=== PATIENT | male | born 1975 | race Caucasian/White ===

== ENCOUNTER → 2019-11-06 | Outpatient (CLI) | payer OTHER | END | disposition home or self-care (01) | LOC: LAB SHORT 13:48 → LAB 13:48 | DX: L72.3 Sebaceous cyst (principal) | CPT/HCPCS: 87070; 87205 ==

== ENCOUNTER → 2021-10-06 | Outpatient (CLI) | payer OTHER ==
[~2021-10-06] MED LIST: Prinivil10 MG PO
[2021-10-08 04:06] LABS: CHLAMYDIA TRACHOMATIS, NAA Negative (Negative)
== END ==
LOC: LAB 13:27 → LAB SHORT 13:27
PROVIDERS: Family Medicine
DX: R35.0 Frequency of micturition (principal)
CPT/HCPCS: 87491; 87591

== ENCOUNTER 2023-02-24 19:36 | Emergency (ER) | payer OTHER ==
[~2023-02-24] VITALS: Ht 172.7 cm; Wt 79.4 kg
[2023-02-24 20:22] LABS: BASOPHILS ABSOLUTE AUTO 0.04 K/mm3 (0.00-0.23); BASOPHILS PERCENT AUTO 0 % (0-2); EOSINOPHILS ABSOLUTE AUTO 0.03 K/mm3 (0.00-0.68); EOSINOPHILS PERCENT AUTO 0 % (0-6); Hematocrit 45.9 % (37.0-53.0); Hemoglobin 15.1 g/dL (13.5-17.5); IMMATURE GRAN ABSOLUTE AUTO 0.03 K/mm3 (0.00-0.10); IMMATURE GRAN PERCENT AUTO 0 % (0-1); LYMPHOCYTES ABSOLUTE AUTO 1.27 K/mm3 (0.84-5.20); LYMPHOCYTES PERCENT AUTO 11 % (21-46); MONOCYTES ABSOLUTE AUTO 0.72 K/mm3 (0.16-1.47); MONOCYTES PERCENT AUTO 6 % (4-13); Mean Corpuscular HGB 27.8 pg (26.0-34.0); Mean Corpuscular HGB Conc 32.9 g/dL (31.5-36.5); Mean Corpuscular Volume 84 fL (80-100); Mean Platelet Volume 10.9 fL (9.1-12.4); NEUTROPHILS ABSOLUTE AUTO 9.84 K/mm3 (1.96-9.15); NEUTROPHILS PERCENT AUTO 83 % (41-73); Platelet Count 359 K/mm3 (150-400); RDW Coefficient Variation 13.5 % (11.7-14.2); RDW Standard Deviation 41.6 fL (35.1-46.3); Red Blood Cell Count 5.44 M/mm3 (4.30-5.90); White Blood Cell Count 11.93 K/mm3 (4.00-11.30)
[2023-02-24 20:42] LABS: Albumin, Blood 3.8 g/dL (3.4-5.0); Albumin/Globulin Ratio 0.8 (0.8-1.8); Bilirubin, Total 0.7 mg/dL (0.1-1.0); Bun/Creatinine Ratio 11.7 (12.0-20.0); Calcium, Blood 9.9 mg/dL (8.5-10.1); Creatinine, Blood 1.54 mg/dL (0.60-1.20); Globulin, Blood 4.7 g/dL (2.2-4.0); Potassium, Blood 3.8 mmol/L (3.5-5.5); Total Protein, Blood 8.5 g/dL (6.4-8.2)
[2023-02-24 23:15] VITALS: BP 168/126
[2023-02-24] MEDS ORDERED: AMOCLA875 PO (23:17)
== END 2023-02-24 23:28 | disposition home or self-care (01) ==
LOC: ER 19:36
PROVIDERS: Student in an Organized Health Care Education/Training Program
DX: G43.909 Migraine, unspecified, not intractable, without status migrainosus (principal); I10 Essential (primary) hypertension; H66.93 Otitis media, unspecified, bilateral; F17.290 Nicotine dependence, other tobacco product, uncomplicated; Z91.030 Bee allergy status; Z79.899 Other long term (current) drug therapy
CPT/HCPCS: 36415; 70450; 80053; 85025; 93005; 93010; 96374; 96375; 96376; 99284-25; A9270; J1200; J1885; J2270; J2765

== ENCOUNTER 2023-03-21 11:36 | Emergency (ER) | payer OTHER ==
[~2023-03-21] VITALS: Ht 175.3 cm; Wt 79.4 kg
[~2023-03-21 11:36] MED LIST changes: +AMOCLA875 PO
[2023-03-21 12:20] LABS: BASOPHILS ABSOLUTE AUTO 0.07 K/mm3 (0.00-0.23); BASOPHILS PERCENT AUTO 1 % (0-2); EOSINOPHILS ABSOLUTE AUTO 0.25 K/mm3 (0.00-0.68); EOSINOPHILS PERCENT AUTO 2 % (0-6); Hematocrit 42.2 % (37.0-53.0); Hemoglobin 14.3 g/dL (13.5-17.5); IMMATURE GRAN ABSOLUTE AUTO 0.04 K/mm3 (0.00-0.10); IMMATURE GRAN PERCENT AUTO 0 % (0-1); LYMPHOCYTES ABSOLUTE AUTO 1.82 K/mm3 (0.84-5.20); LYMPHOCYTES PERCENT AUTO 17 % (21-46); MONOCYTES ABSOLUTE AUTO 0.88 K/mm3 (0.16-1.47); MONOCYTES PERCENT AUTO 8 % (4-13); Mean Corpuscular HGB 27.8 pg (26.0-34.0); Mean Corpuscular HGB Conc 33.9 g/dL (31.5-36.5); Mean Corpuscular Volume 82 fL (80-100); NEUTROPHILS ABSOLUTE AUTO 7.37 K/mm3 (1.96-9.15); NEUTROPHILS PERCENT AUTO 71 % (41-73); Platelet Count 341 K/mm3 (150-400); RDW Coefficient Variation 13.1 % (11.7-14.2); RDW Standard Deviation 39.2 fL (35.1-46.3); Red Blood Cell Count 5.14 M/mm3 (4.30-5.90); White Blood Cell Count 10.43 K/mm3 (4.00-11.30)
[2023-03-21 12:39] LABS: Albumin, Blood 3.3 g/dL (3.4-5.0); Albumin/Globulin Ratio 0.8 (0.8-1.8); Bilirubin, Total 0.5 mg/dL (0.1-1.0); Bun/Creatinine Ratio 12.1 (12.0-20.0); Calcium, Blood 9.2 mg/dL (8.5-10.1); Creatinine, Blood 1.49 mg/dL (0.60-1.20); Globulin, Blood 4.2 g/dL (2.2-4.0); Potassium, Blood 3.1 mmol/L (3.5-5.5); Total Protein, Blood 7.5 g/dL (6.4-8.2)
[2023-03-21 13:30] VITALS: BP 202/157
[2023-03-21] MEDS ORDERED: PSEU120ER PO (14:14)
[2023-03-21] MEDS ORDERED: AMOCLA875 PO (14:14)
[2023-03-21] MEDS ORDERED: Flonase 0.05% N16 GM (14:14)
[2023-03-21] MEDS ORDERED: METO10 PO (14:14)
== END 2023-03-21 15:25 | disposition home or self-care (01) ==
LOC: ER 11:36
PROVIDERS: Student in an Organized Health Care Education/Training Program
DX: G43.909 Migraine, unspecified, not intractable, without status migrainosus (principal); H66.93 Otitis media, unspecified, bilateral; H60.92 Unspecified otitis externa, left ear; R09.81 Nasal congestion; Z91.030 Bee allergy status; Z79.899 Other long term (current) drug therapy; I10 Essential (primary) hypertension; F17.290 Nicotine dependence, other tobacco product, uncomplicated
CPT/HCPCS: 36415; 71046; 80053; 84484; 85025; 93005; 93010; 96374; 96375; 99284-25; A9270; J1885; J2765; J3475; J7030

== ENCOUNTER 2023-03-31 18:46 | Emergency (ER) | payer OTHER ==
[~2023-03-31] VITALS: Ht 175.3 cm; Wt 81.7 kg
[~2023-03-31 18:46] MED LIST changes: +Flonase 0.05% N16 GM; +METO10 PO; +PSEU120ER PO
[2023-03-31 18:47] VITALS: BP 205/146
[2023-03-31 19:20] LABS: BASOPHILS ABSOLUTE AUTO 0.05 K/mm3 (0.00-0.23); BASOPHILS PERCENT AUTO 0 % (0-2); EOSINOPHILS ABSOLUTE AUTO 0.01 K/mm3 (0.00-0.68); EOSINOPHILS PERCENT AUTO 0 % (0-6); Hematocrit 40.1 % (37.0-53.0); Hemoglobin 13.5 g/dL (13.5-17.5); IMMATURE GRAN ABSOLUTE AUTO 0.05 K/mm3 (0.00-0.10); IMMATURE GRAN PERCENT AUTO 0 % (0-1); LYMPHOCYTES ABSOLUTE AUTO 1.12 K/mm3 (0.84-5.20); LYMPHOCYTES PERCENT AUTO 7 % (21-46); MONOCYTES PERCENT AUTO 4 % (4-13); Mean Corpuscular HGB 28.2 pg (26.0-34.0); Mean Corpuscular HGB Conc 33.7 g/dL (31.5-36.5); Mean Corpuscular Volume 84 fL (80-100); Mean Platelet Volume 11.1 fL (9.1-12.4); NEUTROPHILS ABSOLUTE AUTO 13.84 K/mm3 (1.96-9.15); NEUTROPHILS PERCENT AUTO 88 % (41-73); Platelet Count 350 K/mm3 (150-400); RDW Coefficient Variation 13.5 % (11.7-14.2); RDW Standard Deviation 41.9 fL (35.1-46.3); Red Blood Cell Count 4.78 M/mm3 (4.30-5.90); White Blood Cell Count 15.77 K/mm3 (4.00-11.30)
[2023-03-31 19:39] LABS: Albumin, Blood 3.6 g/dL (3.4-5.0); Albumin/Globulin Ratio 0.8 (0.8-1.8); Bilirubin, Total 0.6 mg/dL (0.1-1.0); Bun/Creatinine Ratio 14.2 (12.0-20.0); Calcium, Blood 9.2 mg/dL (8.5-10.1); Creatinine, Blood 1.55 mg/dL (0.60-1.20); Globulin, Blood 4.3 g/dL (2.2-4.0); Potassium, Blood 3.1 mmol/L (3.5-5.5); Total Protein, Blood 7.9 g/dL (6.4-8.2)
== END 2023-03-31 20:13 | disposition left against medical advice (07) ==
LOC: ER 18:46
PROVIDERS: Student in an Organized Health Care Education/Training Program
DX: R51.9 Headache, unspecified (principal); Z53.21 Procedure and treatment not carried out due to patient leaving prior to being seen by health care provider
CPT/HCPCS: 80053; 83690; 85025; 93005; 93010

== ENCOUNTER 2023-04-17 13:17 | Inpatient (IN) | payer OTHER ==
[~2023-04-17] VITALS: Ht 175.3 cm; Wt 79.1 kg
[2023-04-17 13:51] LABS: BASOPHILS ABSOLUTE AUTO 0.07 K/mm3 (0.00-0.23); BASOPHILS PERCENT AUTO 0 % (0-2); EOSINOPHILS ABSOLUTE AUTO 0.08 K/mm3 (0.00-0.68); EOSINOPHILS PERCENT AUTO 1 % (0-6); Hematocrit 40.7 % (37.0-53.0); Hemoglobin 14.3 g/dL (13.5-17.5); IMMATURE GRAN ABSOLUTE AUTO 0.07 K/mm3 (0.00-0.10); IMMATURE GRAN PERCENT AUTO 0 % (0-1); LYMPHOCYTES ABSOLUTE AUTO 1.72 K/mm3 (0.84-5.20); LYMPHOCYTES PERCENT AUTO 10 % (21-46); MONOCYTES ABSOLUTE AUTO 1.17 K/mm3 (0.16-1.47); MONOCYTES PERCENT AUTO 7 % (4-13); Mean Corpuscular HGB 28.7 pg (26.0-34.0); Mean Corpuscular HGB Conc 35.1 g/dL (31.5-36.5); Mean Corpuscular Volume 82 fL (80-100); Mean Platelet Volume 11.8 fL (9.1-12.4); NEUTROPHILS ABSOLUTE AUTO 14.01 K/mm3 (1.96-9.15); NEUTROPHILS PERCENT AUTO 82 % (41-73); Platelet Count 301 K/mm3 (150-400); RDW Coefficient Variation 13.4 % (11.7-14.2); RDW Standard Deviation 39.6 fL (35.1-46.3); Red Blood Cell Count 4.99 M/mm3 (4.30-5.90); White Blood Cell Count 17.12 K/mm3 (4.00-11.30)
[2023-04-17 14:09] LABS: Albumin, Blood 3.5 g/dL (3.4-5.0); Albumin/Globulin Ratio 0.8 (0.8-1.8); Bilirubin, Total 0.7 mg/dL (0.1-1.0); Bun/Creatinine Ratio 10.1 (12.0-20.0); Calcium, Blood 9.6 mg/dL (8.5-10.1); Creatinine, Blood 1.78 mg/dL (0.60-1.20); Globulin, Blood 4.3 g/dL (2.2-4.0); Potassium, Blood 3.5 mmol/L (3.5-5.5); Total Protein, Blood 7.8 g/dL (6.4-8.2)
[2023-04-17 17:45] LABS: Source, Urine Clean Catch
[2023-04-17 17:59] LABS: Appearance, Urine Cloudy (Clear); Bilirubin, Urine Neg (Neg); Blood, Urine 5+ (Neg); Color, Urine Amber (P-Yellow); Glucose Qualitative, Urine Neg (Neg); Ketones, Urine Neg (Neg); Leukocyte Esterase, Urine 1+ (Neg); Nitrite, Urine Neg (Neg); Protein, Urine 3+ (Neg); Specific Gravity, Urine 1.015 (1.003-1.022); Urobilinogen, Urine NORM (Normal)
[2023-04-17 18:08] LABS: Red Blood Cells, Urine TNTC /hpf (0-2); Squamous Epithelial Cells Not Seen /hpf (Few)
[2023-04-17 18:10] LABS: Bacteria Few /hpf
[2023-04-18] VITALS (9 sets, daily range): BP systolic 105–207; BP diastolic 11–137
--- NOTE | 2023-04-18 00:45 | NUR ---
Contacted ER nurse regarding her tellin gme in report that patient did not receive the antibiotic even though it was charted as given. Confirmed with her that it was not given.
[2023-04-18 04:10] LABS: BASOPHILS ABSOLUTE AUTO 0.07 K/mm3 (0.00-0.23); BASOPHILS PERCENT AUTO 0 % (0-2); EOSINOPHILS ABSOLUTE AUTO 0.18 K/mm3 (0.00-0.68); EOSINOPHILS PERCENT AUTO 1 % (0-6); Hematocrit 34.8 % (37.0-53.0); Hemoglobin 11.8 g/dL (13.5-17.5); IMMATURE GRAN ABSOLUTE AUTO 0.04 K/mm3 (0.00-0.10); IMMATURE GRAN PERCENT AUTO 0 % (0-1); LYMPHOCYTES ABSOLUTE AUTO 2.41 K/mm3 (0.84-5.20); LYMPHOCYTES PERCENT AUTO 13 % (21-46); MONOCYTES ABSOLUTE AUTO 1.58 K/mm3 (0.16-1.47); MONOCYTES PERCENT AUTO 9 % (4-13); Mean Corpuscular HGB 28.6 pg (26.0-34.0); Mean Corpuscular HGB Conc 33.9 g/dL (31.5-36.5); Mean Corpuscular Volume 84 fL (80-100); Mean Platelet Volume 11.6 fL (9.1-12.4); NEUTROPHILS ABSOLUTE AUTO 14.26 K/mm3 (1.96-9.15); NEUTROPHILS PERCENT AUTO 77 % (41-73); Platelet Count 242 K/mm3 (150-400); RDW Coefficient Variation 13.5 % (11.7-14.2); RDW Standard Deviation 41.6 fL (35.1-46.3); Red Blood Cell Count 4.13 M/mm3 (4.30-5.90); White Blood Cell Count 18.54 K/mm3 (4.00-11.30)
[2023-04-18 04:32] LABS: Albumin, Blood 2.8 g/dL (3.4-5.0); Albumin/Globulin Ratio 0.8 (0.8-1.8); Bilirubin, Total 0.3 mg/dL (0.1-1.0); Bun/Creatinine Ratio 10.2 (12.0-20.0); Calcium, Blood 8.3 mg/dL (8.5-10.1); Creatinine, Blood 2.15 mg/dL (0.60-1.20); Globulin, Blood 3.5 g/dL (2.2-4.0); Potassium, Blood 3.4 mmol/L (3.5-5.5); Total Protein, Blood 6.3 g/dL (6.4-8.2)
--- NOTE | 2023-04-18 05:54 | NUR ---
Assumed care of pt at 2345 as ER admit. A/Ox4, cooperative with care. Independent in room. C/o abdominal pain, relieved with PRN's. Able to have small, hard BM this shift. NSR on tele in the 80's. Denies CP/pressure. Both SBP and DBP elevated, order to keep SBP above 200. Abdomen slightly distended, hypoactive bowel tones, and tender to touch. [place] urine output, patient denies frequency/urgency. Large bruise to R bicep area of unknown cause. Will report to shauna RN.
--- NOTE | 2023-04-18 18:06 | NUR ---
SHIFT SUMMARY ALERT, ORIENTED, OCC WITHDRAWN AND IRRITABLE, MOSTLY COOPERATIVE. HIGH BP, MEDS ADJUSTED BY DR ROMANO, GOAL IS SBP LESS THAN 170. CONTINU EBOWEL CARE, PATIENT REPORTS A COUPLE SMALL HARD STOOLS, PASSING SOME GAS. ABD IS FIRM AND TENDER. FREQUENT NAUSEA WITH DRY HEAVES. MEDICATED PER EMAR. INDEPENDENT IN ROOM. TOLERATING MECH SOFT DIET. SALINE LOCKED. SEVERAL FAMILY MEMBERS VISITED DURING SHIFT.
--- NOTE | 2023-04-18 23:52 | NUR ---
BM PT STILL C/O SEVERE ABD PAIN/TENDERNESS AND LACK OF SIGNIFICANT BM. CALLEDRESIDENT PALOMINO REGARDING THIS. PROVIDER AWARE OF PT. ORDERS FOR FLEET ENEMA GIVEN, ADMINISTERED. PT UNABLE AT THIS TIME TO HAVE BM EXCEPT FOR SMALL FLAKES WITHIN THE CLEAR ENEMA SOLUTION. PT UP AND DOWN TO BATHROOM OFTEN WITHOUT SUCCESSFUL BM AT THIS TIME. CONTINUING TO MONITOR FOR CHANGES IN THIS.
[2023-04-19] VITALS (9 sets, daily range): BP systolic 159–201; BP diastolic 104–137
[2023-04-19 04:24] LABS: BASOPHILS ABSOLUTE AUTO 0.07 K/mm3 (0.00-0.23); BASOPHILS PERCENT AUTO 0 % (0-2); EOSINOPHILS ABSOLUTE AUTO 0.28 K/mm3 (0.00-0.68); EOSINOPHILS PERCENT AUTO 2 % (0-6); Hematocrit 36.3 % (37.0-53.0); Hemoglobin 12.3 g/dL (13.5-17.5); IMMATURE GRAN ABSOLUTE AUTO 0.08 K/mm3 (0.00-0.10); IMMATURE GRAN PERCENT AUTO 1 % (0-1); LYMPHOCYTES ABSOLUTE AUTO 2.13 K/mm3 (0.84-5.20); LYMPHOCYTES PERCENT AUTO 13 % (21-46); MONOCYTES ABSOLUTE AUTO 1.31 K/mm3 (0.16-1.47); MONOCYTES PERCENT AUTO 8 % (4-13); Mean Corpuscular HGB 28.2 pg (26.0-34.0); Mean Corpuscular HGB Conc 33.9 g/dL (31.5-36.5); Mean Corpuscular Volume 83 fL (80-100); NEUTROPHILS ABSOLUTE AUTO 12.39 K/mm3 (1.96-9.15); NEUTROPHILS PERCENT AUTO 76 % (41-73); Platelet Count 260 K/mm3 (150-400); RDW Coefficient Variation 13.6 % (11.7-14.2); RDW Standard Deviation 41.5 fL (35.1-46.3); Red Blood Cell Count 4.36 M/mm3 (4.30-5.90); White Blood Cell Count 16.26 K/mm3 (4.00-11.30)
[2023-04-19 04:38] LABS: Bun/Creatinine Ratio 11.8 (12.0-20.0); Creatinine, Blood 1.95 mg/dL (0.60-1.20); Potassium, Blood 3.6 mmol/L (3.5-5.5)
--- NOTE | 2023-04-19 04:55 | NUR ---
SHIFT SUMMARY PT AXO. IN SR. HTN REQUIRING PRN LABETOLOL TREATMENTS BUT BP STILL REMAINS HTN DESPITE BEING UNDER 170SBP PARAMETER. POST CALL TO PROVIDER AND ADMINISTRATION OF FLEET ENEMA, PT HAS BEEN UP TO TOILET MULTIPLE TIMES THIS SHIFT WITH ONLY SCANT MUCOUSY OUTPUT. PT WAS COMPLAINING OF SEVERE PAIN PRIOR TO ENEMA ADMINISTRATION AND DURING BUT THIS HAS SINCE APPEARED TO HAVE LESSENED, PT HAS BEEN RESTING AND SNORING IN ROOM SINCE AROUND 1300. PT HAS BATHED MULTIPLE TIMES THIS SHIFT THIS IS A COPING AND PAIN MECHANISM FOR PT. PT TOLERATING PO INTAKE WITHOUT NAUSEA THIS SHIFT. PT INDEPENDENT IN ROOM. CALL LIGHT WITHIN REACH.
--- NOTE | 2023-04-19 14:31 | NUR ---
TRANSFER NOTE ALERT, ORIENTED, COOPERATIVE. REPORTS INTERMITTENT SEVERE ABD PAIN. ABD SOFT, TENDER, ACTIVE BT, PASSING GAS, SMALL HARD STOOLS. TOLERATING MEALS AND PO LIQUIDS. OCCASIONAL NAUSEA AND VOMITING. HIGH SBP, VS OTHERWISE STABLE. MEDICATED FOR BP PER EMAR. INDEPENDENT IN ROOM. SR/ST ON TELE. PLAN TO CONTINUE BOWEL CARE UNTIL ADEQUATE BOWEL MOVEMENT. REPORT GIVEN TO MARGARITA PIÑA RN ON SURGICAL FLOOR. PATIENT LEFT UNIT FOR ROOM 211 AT 1410 VIA WHEELCHAIR.
--- NOTE | 2023-04-19 15:25 | NUR ---
ASSUMED CARE OF PT, TRANSFERRED FROM PCU, DENIES ANY PAIN AT THIS TIME, STATES HE HAS NOT HAD A BM TODAY DESPITE BOWEL CARE REGIMEN, DR. GALVAN NOTIFIED, LACTULOSE NOTED ORDERED, INDEPENDENT IN ROOM, STATES HE TAKES FREQUENT SHOWERS TO HELP RELIEVE DISCOMFORT FROM FEELING CONSTIPATED, ORIENTED TO ROOM, CALL LIGHT WITHIN REACH, CONT. TO MONITOR FOR ANY CHANGES.
--- NOTE | 2023-04-19 17:01 | NUR ---
SUMMARY TRANSFERRED FROM PCU, CONT. PRN HYDRALZAINE GIVEN THIS AFTERNOON FOR SPB >170, PT TAKING FREQUENT SHOWERS, DENIES ANY NAUSEA, NO BM TODAY, NO OTHER CHANGES THIS SHIFT.
[2023-04-20] VITALS (11 sets, daily range): BP systolic 151–192; BP diastolic 36–137
[2023-04-20 05:56] LABS: BASOPHILS ABSOLUTE AUTO 0.04 K/mm3 (0.00-0.23); BASOPHILS PERCENT AUTO 0 % (0-2); EOSINOPHILS PERCENT AUTO 2 % (0-6); Hematocrit 35.3 % (37.0-53.0); Hemoglobin 11.8 g/dL (13.5-17.5); IMMATURE GRAN ABSOLUTE AUTO 0.05 K/mm3 (0.00-0.10); IMMATURE GRAN PERCENT AUTO 0 % (0-1); LYMPHOCYTES ABSOLUTE AUTO 1.69 K/mm3 (0.84-5.20); LYMPHOCYTES PERCENT AUTO 14 % (21-46); MONOCYTES ABSOLUTE AUTO 0.97 K/mm3 (0.16-1.47); MONOCYTES PERCENT AUTO 8 % (4-13); Mean Corpuscular HGB 28.9 pg (26.0-34.0); Mean Corpuscular HGB Conc 33.4 g/dL (31.5-36.5); Mean Corpuscular Volume 86 fL (80-100); Mean Platelet Volume 11.6 fL (9.1-12.4); NEUTROPHILS ABSOLUTE AUTO 9.48 K/mm3 (1.96-9.15); NEUTROPHILS PERCENT AUTO 76 % (41-73); Platelet Count 268 K/mm3 (150-400); RDW Coefficient Variation 13.4 % (11.7-14.2); RDW Standard Deviation 41.8 fL (35.1-46.3); Red Blood Cell Count 4.09 M/mm3 (4.30-5.90); White Blood Cell Count 12.53 K/mm3 (4.00-11.30)
[2023-04-20 06:42] LABS: Anion Gap 4 mmol/L (6-16); Blood Urea Nitrogen 26 mg/dL (8-24); Bun/Creatinine Ratio 12.5 (12.0-20.0); CO2, Blood 32 mmol/L (21-32); Calcium, Blood 8.8 mg/dL (8.5-10.1); Chloride, Blood 100 mmol/L (98-108); Creatinine, Blood 2.08 mg/dL (0.60-1.20); Glomerular Filtration Rate 39 (60-); Glucose, Blood 105 mg/dL (70-99); Phosphorus, Blood 3.7 mg/dL (2.5-4.9); Potassium, Blood 3.8 mmol/L (3.5-5.5); Sodium, Blood 136 mmol/L (136-145)
--- NOTE | 2023-04-20 07:31 | NUR ---
SHIFT SUMMARY AOX4. BP ELEVATED T/O NIGHT, 197/128 @BEGINNING OF SHIFT-GAVE HS LOPRESSOR, NORVASC & 10MG IV LABETOLOL PUSH, BP DECREASED TO 186/120 & PT SLEPT SOUNDLY T/O NIGHT. THIS AM BP ELEVATED AGAIN @192/137, GAVE LABETOLOL PUSH & BP DECREASED TO 167/116. REST OF VITALS STABLE. TELE NSR HR 90'S. REPORTS 8/10 LUQ ABD PAIN, DENIED NEED FOR PAIN MEDS. HAD 1 LRG LIQUID BROWN BM & ABD PAIN DECREASED TO 2/10 THIS AM. HYPERACTIVE BT. DENIES N/V. TOLERATING REG [facility] SOFT DIET. CALL LIGHT IN REACH & PT IND.
--- NOTE | 2023-04-20 07:44 | NUR ---
PT BP 188/135. PT MEDICATED WITH 10MG LABATELOL AT 0745. PRIOR TO ADMINISTRATION TELE CALLED, MD HR SR 88 W/PVC'S. WILL RE-CHECK BP IN APROX 15MIN.
[2023-04-20 17:10] LABS: U Amphetamine Screen Not Detected; U Barbituate Screen Not Detected; U Benzodiazapine Screen Not Detected; U Buprenorphine Screen Not Detected; U Cannabinoids Screen DETECTED; U Cocaine Screen Not Detected; U Methadone Screen Not Detected; U Methamphetamine Screen Not Detected; U Opiates Screen Not Detected; U Oxycodone Screen Not Detected; U Phencyclidine Screen Not Detected; U Propoxyphene Screen Not Detected
--- NOTE | 2023-04-20 18:16 | NUR ---
SHIFT SUMMARY PT HAS CONTINUED TO HAVE HTN T/O SHIFT, MANAGED WITH IVP MEDICATIONS AND WILL ADD NEW PO MEDICATION TO START TONIGHT. PT HAS BEEN UP TO TAKE MULTIPLE SHOWERS OR TO "SPRAY HOT WATER" ON ABD FOR PAIN. AMBULATING IN HALLWAY INDEPENDENTLY. TELE NSR W/PVCS W/RATE 84-88 T/O SHIFT.
[2023-04-21 04:32] VITALS: BP 146/98
[2023-04-21 05:03] LABS: BASOPHILS ABSOLUTE AUTO 0.07 K/mm3 (0.00-0.23); BASOPHILS PERCENT AUTO 1 % (0-2); EOSINOPHILS ABSOLUTE AUTO 0.35 K/mm3 (0.00-0.68); EOSINOPHILS PERCENT AUTO 3 % (0-6); Hematocrit 34.7 % (37.0-53.0); Hemoglobin 11.2 g/dL (13.5-17.5); IMMATURE GRAN ABSOLUTE AUTO 0.05 K/mm3 (0.00-0.10); IMMATURE GRAN PERCENT AUTO 0 % (0-1); LYMPHOCYTES ABSOLUTE AUTO 1.71 K/mm3 (0.84-5.20); LYMPHOCYTES PERCENT AUTO 14 % (21-46); MONOCYTES ABSOLUTE AUTO 0.91 K/mm3 (0.16-1.47); MONOCYTES PERCENT AUTO 7 % (4-13); Mean Corpuscular HGB 27.6 pg (26.0-34.0); Mean Corpuscular HGB Conc 32.3 g/dL (31.5-36.5); Mean Corpuscular Volume 86 fL (80-100); Mean Platelet Volume 11.9 fL (9.1-12.4); NEUTROPHILS ABSOLUTE AUTO 9.51 K/mm3 (1.96-9.15); NEUTROPHILS PERCENT AUTO 75 % (41-73); Platelet Count 297 K/mm3 (150-400); RDW Coefficient Variation 13.5 % (11.7-14.2); RDW Standard Deviation 42.4 fL (35.1-46.3); Red Blood Cell Count 4.06 M/mm3 (4.30-5.90)
[2023-04-21 05:42] LABS: Bun/Creatinine Ratio 13.5 (12.0-20.0); Calcium, Blood 8.9 mg/dL (8.5-10.1); Creatinine, Blood 1.85 mg/dL (0.60-1.20); Potassium, Blood 4.1 mmol/L (3.5-5.5)
--- NOTE | 2023-04-21 07:42 | NUR ---
SHIFT SUMMARY PT HAS BEEN ABLE TO REST COMFORTABLY AFTER GETTING TRAMADOL FOR PAIN, BLOOD PRESSURE DECREASED AFTER IV LABETOLOL & HYDRALIZINE AND AN INCREASED DOSE OF PO METOPROLOL, NO OTHER ACUTE CHANGES NOTED, REPORT GIVEN TO DAY RN, CALL LIGHT IN REACH
[2023-04-21 07:53] VITALS: BP 156/109
[2023-04-21 07:55] VITALS: BP 148/110
[2023-04-21] MEDS ORDERED: CATAPRES0.1 MG PO (10:33)
[2023-04-21] MEDS ORDERED: AMLO5 PO (10:33)
[2023-04-21] MEDS ORDERED: DOCU100 PO (10:34)
[2023-04-21] MEDS ORDERED: METO50 PO (10:34)
[2023-04-21] MEDS ORDERED: GABA100 PO (10:34)
[2023-04-21] MEDS ORDERED: Nicoderm Cq1 EACH TOP (10:34)
[2023-04-21] MEDS ORDERED: TRAM50 PO (10:35)
[2023-04-21] MEDS ORDERED: MIRALAX17 GM PO (10:35)
[2023-04-21] MEDS ORDERED: SENNA LAXATIVE8.6 MG PO (10:35)
--- NOTE | 2023-04-21 11:14 | NUR ---
DISCHARGE PT LEFT AT 1100. IV REMOVED PRIOR TO DISCHARGE. PRESCRIPTIONS FAXED TO [facility] PER PT REQUEST. HE PLANS TO PICK THEM UP SOON POSSIBLE. F/U APPOINTMENTS PATIENT REPORTS ALREADY SCHEDULED. HE REPORTS FEELING MUCH BETTER TODAY WITH BLOOD PRESSURE DOWN TO THE 140'S. ALL BELONGINGS SENT WITH SISTER PRIOR TO DISCHARGE.
== END 2023-04-21 11:17 | disposition home or self-care (01) | DRG 392 ==
LOC: ER 13:17 → PCU 13:18 → UNDODEPER 23:32 → PCU 23:49 → SURS 04-19 14:25
PROVIDERS: Family Medicine; Internal Medicine; Physician Assistant; ADMIT Internal Medicine
DX: K59.00 Constipation, unspecified (principal); R65.10 Systemic inflammatory response syndrome (SIRS) of non-infectious origin without acute organ dysfunction; E87.1 Hypo-osmolality and hyponatremia; K86.3 Pseudocyst of pancreas; I24.8 Other forms of acute ischemic heart disease; N17.9 Acute kidney failure, unspecified; Z91.148 Patient's other noncompliance with medication regimen for other reason; I16.0 Hypertensive urgency; N18.30 Chronic kidney disease, stage 3 unspecified; E87.6 Hypokalemia; D63.1 Anemia in chronic kidney disease; Z87.891 Personal history of nicotine dependence; Z91.038 Other insect allergy status; Z91.030 Bee allergy status; Z79.2 Long term (current) use of antibiotics; Z79.899 Other long term (current) drug therapy
CPT/HCPCS: 36415; 71046; 74018; 74177; 80048; 80053; 80069; 81001; 83605; 83690; 84484; 85025; 87040; 87086; 93005; 93010; 93306; 96361; 96372; 96374-59; 96375; 96376; 99285-25; A9270; G0378; J0360; J0696; J1170; J1200; J1650; J1940; J2765; J3010; J7030; J7050; Q9967

== ENCOUNTER → 2023-10-04 | Outpatient (CLI) | payer OTHER ==
[~2023-10-04] MED LIST changes: +AMLO5 PO; +CATAPRES0.1 MG PO; +DOCU100 PO; +GABA100 PO; +METO50 PO; +MIRALAX17 GM PO; +Nicoderm Cq1 EACH TOP; +SENNA LAXATIVE8.6 MG PO; +TRAM50 PO
[2023-10-04 18:25] LABS: BASOPHILS ABSOLUTE AUTO 0.06 K/mm3 (0.00-0.23); BASOPHILS PERCENT AUTO 1 % (0-2); EOSINOPHILS ABSOLUTE AUTO 0.17 K/mm3 (0.00-0.68); EOSINOPHILS PERCENT AUTO 1 % (0-6); Hematocrit 39.9 % (37.0-53.0); Hemoglobin 12.8 g/dL (13.5-17.5); IMMATURE GRAN ABSOLUTE AUTO 0.04 K/mm3 (0.00-0.10); IMMATURE GRAN PERCENT AUTO 0 % (0-1); LYMPHOCYTES ABSOLUTE AUTO 2.46 K/mm3 (0.84-5.20); LYMPHOCYTES PERCENT AUTO 20 % (21-46); MONOCYTES ABSOLUTE AUTO 0.79 K/mm3 (0.16-1.47); MONOCYTES PERCENT AUTO 6 % (4-13); Mean Corpuscular HGB 27.7 pg (26.0-34.0); Mean Corpuscular HGB Conc 32.1 g/dL (31.5-36.5); Mean Corpuscular Volume 86 fL (80-100); Mean Platelet Volume 10.8 fL (9.1-12.4); NEUTROPHILS ABSOLUTE AUTO 9.06 K/mm3 (1.96-9.15); NEUTROPHILS PERCENT AUTO 72 % (41-73); Platelet Count 455 K/mm3 (150-400); RDW Standard Deviation 40.8 fL (35.1-46.3); Red Blood Cell Count 4.62 M/mm3 (4.30-5.90); White Blood Cell Count 12.58 K/mm3 (4.00-11.30)
[2023-10-04 18:52] LABS: Albumin, Blood 3.4 g/dL (3.4-5.0); Albumin/Globulin Ratio 0.8 (0.8-1.8); Bilirubin, Total 0.2 mg/dL (0.1-1.0); Bun/Creatinine Ratio 12.5 (12.0-20.0); Creatinine, Blood 1.92 mg/dL (0.60-1.20); Globulin, Blood 4.4 g/dL (2.2-4.0); Potassium, Blood 3.7 mmol/L (3.5-5.5); Thyroid Stimulating Hormone 1.49 uIU/mL (0.360-4.800); Total Protein, Blood 7.8 g/dL (6.4-8.2)
== END ==
LOC: LAB SHORT 17:30 → LAB 17:30
PROVIDERS: Nurse Practitioner Family
DX: R06.02 Shortness of breath (principal); R53.81 Other malaise
CPT/HCPCS: 80053; 83880; 84443; 85025; 85379

== ENCOUNTER 2024-07-04 03:39 | Observation (INO) | payer OTHER ==
[~2024-07-04] VITALS: Ht 175.3 cm; Wt 87.8 kg
[~2024-07-04 03:39] MED LIST changes: +CEPH500 PO; +Carvedilol12.5 MG PO; +DOCUZEN 8.6-501 EACH PO; +FAMO20 PO; +LISI20 PO; +LOSA25 PO; +METR500 PO; +NICODERM CQ1 EA11 TOP; +Percocet 5-3251 EACH PO; +TAMS.4ER PO; +VISBIOME 112.51 EACH PO
[2024-07-04 04:09] LABS: BASOPHILS ABSOLUTE AUTO 0.06 K/mm3 (0.00-0.23); BASOPHILS PERCENT AUTO 1 % (0-2); EOSINOPHILS ABSOLUTE AUTO 0.26 K/mm3 (0.00-0.68); EOSINOPHILS PERCENT AUTO 3 % (0-6); Hematocrit 41.3 % (37.0-53.0); Hemoglobin 13.4 g/dL (13.5-17.5); IMMATURE GRAN ABSOLUTE AUTO 0.02 K/mm3 (0.00-0.10); IMMATURE GRAN PERCENT AUTO 0 % (0-1); LYMPHOCYTES ABSOLUTE AUTO 1.86 K/mm3 (0.84-5.20); LYMPHOCYTES PERCENT AUTO 18 % (21-46); MONOCYTES ABSOLUTE AUTO 0.85 K/mm3 (0.16-1.47); MONOCYTES PERCENT AUTO 8 % (4-13); Mean Corpuscular HGB 27.7 pg (26.0-34.0); Mean Corpuscular HGB Conc 32.4 g/dL (31.5-36.5); Mean Corpuscular Volume 85 fL (80-100); Mean Platelet Volume 10.7 fL (9.1-12.4); NEUTROPHILS ABSOLUTE AUTO 7.17 K/mm3 (1.96-9.15); NEUTROPHILS PERCENT AUTO 70 % (41-73); Platelet Count 294 K/mm3 (150-400); RDW Coefficient Variation 13.6 % (11.7-14.2); RDW Standard Deviation 42.6 fL (35.1-46.3); Red Blood Cell Count 4.84 M/mm3 (4.30-5.90); White Blood Cell Count 10.22 K/mm3 (4.00-11.30)
[2024-07-04 04:28] LABS: Albumin, Blood 3.1 g/dL (3.4-5.0); Albumin/Globulin Ratio 0.8 (0.8-1.8); Bilirubin, Total 0.2 mg/dL (0.1-1.0); Bun/Creatinine Ratio 15.3 (12.0-20.0); Creatinine, Blood 1.57 mg/dL (0.60-1.20); Globulin, Blood 3.9 g/dL (2.2-4.0); Potassium, Blood 4.1 mmol/L (3.5-5.5)
[2024-07-04] MEDS ORDERED: Ketorolac Tromethamine 30mg Vial IV ONE (05:00)
[2024-07-04] MEDS ORDERED: HYDROmorphone HCl/Pf 1MG SYR IV ONE (05:05)
[2024-07-04] MEDS ORDERED: NS 1,000 ML IV SCH (05:05)
[2024-07-04] MEDS ORDERED: Ondansetron HCl 2 MG / ML 2ML Vial IV ONE (05:05)
[2024-07-04 05:24] LABS: Source, Urine Clean Catch
[2024-07-04 05:30] LABS: Bilirubin, Urine Neg (Neg); Blood, Urine 1+ (Neg); Glucose Qualitative, Urine Neg (Neg); Ketones, Urine Neg (Neg); Leukocyte Esterase, Urine Neg (Neg); Nitrite, Urine Neg (Neg); Protein, Urine Neg (Neg); Specific Gravity, Urine 1.015 (1.003-1.022); Urobilinogen, Urine NORM (Normal); pH, Urine 6.5 (5.0-8.0)
[2024-07-04 05:43] LABS: Appearance, Urine Clear (Clear); Color, Urine Pale Yellow (P-Yellow)
[2024-07-04 05:44] LABS: Bacteria Few /hpf; Red Blood Cells, Urine 0-2 /hpf (0-2); Squamous Epithelial Cells Few /hpf (Few); White Blood Cells, Urine 0-2 /hpf (0-5)
[2024-07-04] MEDS ORDERED: Ondansetron HCl 2 MG / ML 2ML Vial IV PRN (06:50)
[2024-07-04] MEDS ORDERED: FentaNYL Citrate 50 MCG/ML 2 ML Injection IV PRN (06:50)
[2024-07-04] MEDS ORDERED: Lactated Ringer's 1,000 ML IV SCH (06:50)
[2024-07-04] MEDS ORDERED: Lactated Ringer's 1,000 ML IV ONE (07:03)
--- NOTE | 2024-07-04 08:20 | NUR ---
Telephone report received from ED at this time. Pt to arrive to 212 shortly.
[2024-07-04 08:35] VITALS: BP 156/111
[2024-07-04] MEDS ORDERED: Carvedilol12.5 MG PO (08:55)
[2024-07-04] MEDS ORDERED: AMLO10 PO (08:56)
[2024-07-04] MEDS ORDERED: PEPTO-BISMOL T262 M2 PO ×2 (08:58→08:59)
--- NOTE | 2024-07-04 09:22 | NUR ---
Pt arrived to 212 by wheelchair, with his head covered in a blanket. States that he is having a headache and has sensitivity to light. He is irritable, demanding to have a shower before anything else, although he agreed to complete the admission process and have an IV started before the shower. He has made several remarks to staff which were demeaning and sarcastic, criticizing the intelligence and compentency of staff. States he is not fond of anyone at the hosptial. His girlfriend frequently tells him to please stop.
[2024-07-04] MEDS ORDERED: HYDROcodone 7.5-APAP 325 TAB PO PRN (10:40)
--- NOTE | 2024-07-04 11:09 | NUR ---
Pt had a visit from his mother who was pushing pt's father in a wheelchair. Immediately as they entered the pt sat up in bed, yelling at them, which susy multiple staff members from around the unit. The pt screamed at his father, saying that he was a terrible man. They left right away. His mother returned a few minutes later, asked staff to give the pt a piece of unopened mail. She said that they have been trying to help him, that it has been difficult for several months, but that now he will have to help himself. His girlfriend also left a few hours ago, saying that she was tired of him yelling at her, and she was not going to sit around and put up with it. Dr Julian just saw the patient, and was explaining to him about his diagnosis. The pt began sobbing, wiping his face with the blanket which he has over his head. Pt stated "I just want to go home. I don't want any of this." Dr. Julian told the patient he would give him some time to think it over.
[2024-07-04] MEDS ORDERED: Ampicillin Sod/Sulbactam Sod 3 GM in NS 100 ML IV SCH (12:00)
[2024-07-04 14:33] VITALS: BP 155/103
[2024-07-04] MEDS ORDERED: Nicotine 14 MG PATCH TOP SCH (14:40)
--- NOTE | 2024-07-04 15:14 | NUR ---
Pt's girlfriend Jenny returned to visit the patient. I asked her outside of the room if she felt safe visiting him, voicing my concerns over this morning conversation with the pt. She said yes. Jenny is in the room with the pt, conversation is calm and appears to be friendly. Pt has been cooperative and polite with staff. Pt was told that if he would like a visitor to leave he is not permitted to raise his voice to yell out of respect for other patients in the hospital. If he needs staff assistance he can call for staff to ask unwanted visitors to leave. Pt verbalized understanding. Report given to MAXINE Wesley.
[2024-07-04] MEDS ORDERED: Carvedilol 6.25 MG Tab PO ONE (17:55)
--- NOTE | 2024-07-04 18:11 | NUR ---
SHIFT SUMMARY ASSUMED CARE OF THIS PATIENT FROM PRIOR DAY RN AT APPROX 1520 TODAY, PATIENT WAS IN BED WHEN DOING INITIAL ROUNDING ON HIM, NO NEEDS AT THAT TIME BUT HE ASKED I HE COULD HAVE HI PAIN MEDS WHEN AVAILABLE. PT STATES HE DOES NOT WANT AANY VISITORS TODAY OTHER THAN HIS GIRLFRIEND WHO WAS IN THE ROOM WITH HIM AT THE TIME. MEDICATED FOR PAIN 1X, OBTIANED ORDERS FOR HIS BP MEDS. NO ACUTE EVENTS, PLAN FOR OR TOMORROW, CALL LIGHT IN REACH.
[2024-07-04 19:13] VITALS: BP 161/105
[2024-07-04] MEDS ORDERED: Lisinopril 20 MG Tab PO SCH (21:00)
[2024-07-04] MEDS ORDERED: AmLODIPine Besylate 5 MG Tab PO SCH (21:00)
[2024-07-04] MEDS ORDERED: Tamsulosin HCl 0.4 MG Cap PO SCH (21:00)
[2024-07-05] VITALS (15 sets, daily range): BP systolic 100–181; BP diastolic 86–117
--- NOTE | 2024-07-05 05:04 | NUR ---
SHIFT SUMMARY NO ACUTE CHANGES TO REPORT OVERNIGHT. PT HAS RESTED T/O THE NIGHT. PT DENIES PAIN. NO N/V. PT HAS BEEN INDEPENDENT IN THE ROOM. AMBULATING IN THE HALLWAY AND IN HIS ROOM. HE HAS BEEN NPO SINCE MIDNIGHT FOR SURGERY TODAY. IVF INFUSING. PLAN OF CARE REMAINS UNCHANGED. BED IN LOWEST POSITION, CALL LIGHT WITHIN REACH.
[2024-07-05] MEDS ORDERED: Carvedilol 6.25 MG Tab PO SCH (08:00)
[2024-07-05] MEDS ORDERED: Fluticasone 0.05% Nasal Spray SCH (09:00)
[2024-07-05] MEDS ORDERED: Lactated Ringer's 1,000 ML IV ONE (10:55)
--- NOTE | 2024-07-05 11:06 | NUR ---
PT INTO PACU 1100. PT ANXIOUS, TEARY, GF AT BEDSIDE, BP ELEVATED-BASELINE, ON RA, AFEBRILE, DEEP BREATHES, PAS IN PLACE, SURGICAL HAT IN PLACE, WARM BLANKETS PLACED, RESTING COMFORTABLY. LR TKO. WILL CONTINUE TO MONITOR.
[2024-07-05] MEDS ORDERED: Bupivacaine 0.5% HCl 5 MG/ML 30MLVIAL ONE (11:12)
[2024-07-05] MEDS ORDERED: propofoL 80 ML IV ONE (11:16)
[2024-07-05] MEDS ORDERED: Rocuronium Bromide 10 MG/ML 5ML Injection IV ONE (11:18)
[2024-07-05] MEDS ORDERED: Midazolam HCl 1MG / ML 2ML Vial ONE (11:51)
[2024-07-05] MEDS ORDERED: FentaNYL Citrate 50 MCG/ML 2 ML Injection ONE ×2 (11:52→13:41)
[2024-07-05] MEDS ORDERED: Dexamethasone Sod Phos 10 MG/ML 1ML VIAL ONE (11:52)
[2024-07-05] MEDS ORDERED: Ondansetron HCl 2 MG / ML 2ML Vial ONE (11:52)
[2024-07-05] MEDS ORDERED: Sugammadex Sodium 200 MG/2ML SDV (100 MG/ML) ONE (11:52)
--- NOTE | 2024-07-05 11:54 | NUR ---
PT TO O.R.2 AT 1155
[2024-07-05] MEDS ORDERED: Labetalol HCL 5 MG/ML 4ML Injection (Single Dose) ONE (12:21)
[2024-07-05] MEDS ORDERED: HydrALAZINE HCl 20 MG / ML 1ML Vial ONE (13:34)
--- NOTE | 2024-07-05 14:07 | NUR ---
DR RAE CALLED FOR HYDRALAZINE 20 MG IV GIVEN, PT VS STABLE AND IMPROVED.
[2024-07-05] MEDS ORDERED: Hydrocodone-Ap1 EA26 PO (14:28)
[2024-07-05] MEDS ORDERED: Nicotine 14 MG PATCH TOP SCH (15:00)
--- NOTE | 2024-07-05 16:49 | NUR ---
DISCHARGE SUMMARY PT ARRIVED BACK FROM PACU AT APPROX 1415, TRANSFERRED HIMSELF TO HIS BED BY SLIDING HIMSELF OVER FROM THE GURNEY, 4 ABD LAP SITES WITH STERI STRIPS ALL C/D/I, HE WAS GROANING A BIT BUT PER PACU HE HAD BEEN DOING THIS BUT WAS NOT C/O AY PAIN AT THAT TIME. POST OP VITALS OBTAINED. PT CALED AND ASKED FOR PAIN MEDS AND WAS MEDICCATED AT 1521 (SEE EMAR). APPROX 5 MINUTES LATER HE CALLED AGAIN, WHEN ENTERIN THE ROOM HE WAS LAYING IN HIS BED BUT ROCKING UP HIS HEAD AND UPPER BODY IF TRYING TO SIT UP. HE ASKED FOR SOMETHING FOR PAIN AN WAS EDUCATED THAT HE HAD ALREADY BEEN GIVEN HIS PAIN MEDS BUT THEY TAKE ABOUT 30-40 MINUTES TO TAKE EFFECT AND THAT ENGAGING HI CORE MUSCLES THE WAY HE WAS DOING WAS MOOST LIKELY MAKING THE PAIN WORSE. PT DID NOT RESPOND TO TO THIS AND STAFF LEFT HIS ROOM. APPROX 5 MINUTES WENT BY AND HE HAD CALLED AGAIN AKING FOR PAIN MEDS, WHEN THIS RN ENTERED HIS ROOM TO TALK WITH HIM HE STATED "IF YOU TELL ME ITS GOING TO TAE 30 MINUTES FOR THE FUCKING PILLS TO KICK IN I'M GOING TO GET UP AND STRANGLE YOU". THI RN EDUCATED HIM AGAIN THAT THE MEDS NEED JUST A BIT LONGER TO KICK IN AND LEFT THE ROOM TO UPDATE THE POSTAL TRANSPORTATION CLERK ON THE SITUATION. APPROX 3 MINUTES LATER HE CALLED AGAIN AND WHEN THIS RN ENTERED HIS ROOM HE STATED "IF YOU AREN'T GOING TO DO ANYTHING TO HELP ME THEN I WANT TO TALK TO SOMEONE ELSE". POSTAL TRANSPORTATION CLERK SAID SHE HAD CALLED SECURITY FOR ASSISTANCE WITH HIM ESCALATING SO STAFF WAITING FOR THEMTO ARRIVE. PATIENTS GIRLFRIEND ARRIVED SHORTLY AFTER SECURITY WAS CALLED AND ATTEMPTED TO CALM HIM DOWN. HE WAS ARGUING WITH HIS GIRLFRIEND WHEN SECUTIRY ARRIVED AND SECUTIRY WAS UPDATED ON HER ARRIVAL AND EVENTS LEADING UP TO THEIR ARRIVAL. A MINUTE LATER PATIENT OPENED HIS DOOR ATTEMPTING TO WALK OUT INTO THE HALLWAY NAKED AND WAS STOPPED BY SECURITY WHO AT THE TIME WAS STANING JUST OUTSIDE THE DOOR. SECURITY ASSISTED HIM BACK INTO HIS ROOM TELLING HIM THAT HE CAN'T BE WALKING IN THE HALLS NAKED LIKE THAT. PATIENT BECAME BELLIGERENT WITH SECURITY YELLING AT THEM TO "GET THE FUCK OUT" AND THAT HE WAS GOING TO BEAT THEIR ASSES. COLBY THIS TIME THE GIRLFRIEND CONTINUED TO ATTEMPT TO SETTLE HIM. SECURITY WAITED A FEW MINUTES AND EVENTUALLY CAME BACK OUT INTO THE SHIN WHEN HE CALMED DOWN AND WASN'T YELLING ANYMORE. HE HAD ALSO ASKED TO BE TRANSFERRED TO ANOTHER HOSPITAL TO WHICH THIS RN INFORMED SECUTIRY THAT HE WAS CLEARED TO BE DISCHARGED BY THE SURGEON. PATIENT WAS THEN HELPED INTO THE BATHROOM BY HIS GIRLFRIEND AND ASKED IF HE COUL HAVE SOMETHING TO WRAP AROUND HIM, STAFF PROVIDED HIM AN ABD BINDER WITH EDUCATION ON HOW TO USE IT SO HIS GIRLFRIEND COULD HELP PUT IT ON HIM. BY APPROX 1620 HE HAD SETTLED DOWN AND WASN'T C/O PAIN ANYMORE, THIS RN ATTEMPTED TO LET THE GIRLFRIEND KNOW THAT WE HAD A SCRIPT FOR HIM FOR PAIN MEDS FOR HOME, SOON THIS RN STEPPED INTO THE DOOR WAY HE BECAME AGGITATED AGAIN AND STARTED YELLING FOR ME TO GET OUT AND DID NOT WANT TO TALK TO ME OR HEAR ANYTHING I HAD TO SAY. GIRLFRIENCheryl STEPPED OUT OF THE ROOM AND THIS RN TOLD HER HE WAS OK TO DISCHARGE BUT WOULD NEED HIS SCRIPT FILLED BEFORE HIS PHARMACY CLOSED. PT ARGUED AGAIN STATING HE DIDN'T WANT HER TO LEAVE TO FILL IT BUT HE DIDN'T WANT TO LEAVE EITHER. ATER A FEW MINUTES SHE STEPPED OUT AGAIN AND SAID HE WAS READY TO BE DISCHARGED BUT DID NOT WHAT THIS RN IN THE ROOM. ANOTHER FLOOR RN WENT IN TO REMOVE HIS IV AND DISCUSS DISCHARGE INSTRUCTIONS WITH HIM, THIS RN STAYED CLOSE BY IN CASE HE ESCALATED AGAIN BUT STAYED OUT OF LINE OF SIGHT SO TO NOT CAUSE HIS AGGITATION BY SEEING ME. PT ESCORTED OUT BY HIS GIRLFRIEND IN A WC TO GO HOME.
== END 2024-07-05 16:47 | disposition home or self-care (01) ==
LOC: ER 03:39 → SURS 03:40
PROVIDERS: Emergency Medicine; ADMIT Surgery
PROC: 0FT44ZZ Resection of Gallbladder, Percutaneous Endoscopic Approach (ICD-10-PCS; principal; 2024-07-04)
DX: K80.10 Calculus of gallbladder with chronic cholecystitis without obstruction (principal); I13.0 Hypertensive heart and chronic kidney disease with heart failure and stage 1 through stage 4 chronic kidney disease, or unspecified chronic kidney disease; N18.30 Chronic kidney disease, stage 3 unspecified; I50.9 Heart failure, unspecified; K21.9 Gastro-esophageal reflux disease without esophagitis; F17.290 Nicotine dependence, other tobacco product, uncomplicated; Z79.899 Other long term (current) drug therapy
CPT/HCPCS: 71045; 76705; 80053; 81001; 84484; 85025; 88304; 93005; 93010; 96361; 96365; 96374; 96375; 96376; 99285-25; A9270; G0378; J0295; J0360; J1100; J1170; J1885; J2250; J2405; J2704; J3010; J7030; J7120